=== PATIENT | female | born 1940 | race Caucasian/White ===

== ENCOUNTER 2017-01-01 11:26 | Emergency (ER) | payer MEDICARE, BC ==
[~2017-01-01] VITALS: Ht 170.2 cm; Wt 84.2 kg
[~2017-01-01 11:26] MED LIST: AMLO5TAB PO; ASCO10007 PO; ASPI81TA2 PO; BIOT25008 PO; CALC600T12 PO; CEPH-583 PO; CRAN500C3 PO; CYAN25002 PO; GLUC-136 PO; HYDR12.530 PO; IBUP-14 PO; LECI400C4 PO; LIPOIC ACID PO; LISI40TA4 PO; OMEP20TA2 PO
[2017-01-01 11:30] VITALS: Ht 170.2 cm; Wt 84.2 kg
[2017-01-01] MEDS ORDERED: ASPIRIN 81 MG CHEWABLE TABLET PO ONE (11:30)
--- OUTSIDE RECORDS SUMMARY | 2017-01-01 11:30 | XMS REPORT | Continuity of Care Document ---
Author Author [facility] Organization [facility] Address Unknown Phone Unavailable Allergies Medications Problems Procedures Results Encounters ACCT No. Visit Date/Time Discharge Status Pt. Type Provider Facility Loc./Unit Complaint [id number] 05/31/2016 13:49:00 2015 13:49:00 DIS Outpatient Chuy DUBOSE, [facility] E.OPO [id number] 11/15/2015 13:31:00 2015 13:31:00 DIS Outpatient Chuy DUBOSE, [facility] E.COLLEEN [id number] 11/05/2015 10:12:00 2015 10:12:00 DIS Outpatient Chuy DUBOSE, [facility] E.RAC
--- OUTSIDE RECORDS SUMMARY | 2017-01-01 11:36 | XMS REPORT | Continuity of Care Document ---
Author Author [facility] Organization [facility] Address Unknown Phone Unavailable Allergies Medications Problems Procedures Results Encounters ACCT No. Visit Date/Time Discharge Status Pt. Type Provider Facility Loc./Unit Complaint [id number] 05/31/2016 13:49:00 2015 13:49:00 DIS Outpatient Chuy DUBOSE, [facility] E.OPO [id number] 11/15/2015 13:31:00 2015 13:31:00 DIS Outpatient Chuy DUBOSE, [facility] E.COLLEEN [id number] 11/05/2015 10:12:00 2015 10:12:00 DIS Outpatient Chuy DUBOSE, [facility] E.RAC
[2017-01-01 11:43] LABS: BASOPHILS # (AUTO) 0.1 T/MM3 (0-0.2); BASOPHILS % (AUTO) 1.1 % (0-2); EOSINOPHILS # (AUTO) 0.4 T/MM3 (0-0.5); EOSINOPHILS % (AUTO) 3.7 % (0-4); HCT - HEMATOCRIT 40.5 % (36-46); HGB - HEMOGLOBIN 13.6 GM/DL (12-16); IMMATURE GRANULOCYTE # (AUTO) 0.02 T/MM3 (0.00-0.03); IMMATURE GRANULOCYTE % (AUTO) 0.2 % (0.0-0.5); LYMPHOCYTES # (AUTO) 3.1 T/MM3 (1-4.8); LYMPHOCYTES % (AUTO) 31.1 % (23-45); MEAN CORPUSCULAR HGB 31.1 UUG (26-34); MEAN CORPUSCULAR HGB CONC(MCHC 33.6 GM/DL (31-37); MEAN CORPUSCULAR VOLUME 92.5 UM3 (80-100); MEAN PLATELET VOLUME 9.9 UM3 (9.4-12.4); MONOCYTES # (AUTO) 1.1 T/MM3 (0-0.8); MONOCYTES % (AUTO) 10.9 % (0-9.0); NEUTROPHILS #(AUTO)-ABSOLUTE 5.3 T/MM3 (1.8-7.7); RED BLOOD COUNT 4.38 M/MM3 (4.00-5.20)
[2017-01-01 11:48] LABS: INR 0.98 (0.76-1.04); PROTHROMBIN TIME 10.7 SEC (9.31-12.49)
[2017-01-01 11:52] LABS: ANION GAP 16 MEQ/L (5-15); BUN/CREATININE RATIO 21 RATIO (6-26); CALCIUM 10.1 MG/DL (8.4-10.2); CHLORIDE 98 MEQ/L (98-107); CO2 - CARBON DIOXIDE 25 MEQ/L (22-30); CREATININE 1.1 MG/DL (0.7-1.2); GLOMERULAR FILTRATION RATE 48; GLUCOSE 88 MG/DL (65-110); POTASSIUM 4.1 MEQ/L (3.6-5); SODIUM 139 MEQ/L (134-144)
--- NOTE | 2017-01-01 11:56 | NUR ---
PROVIDER DR. FERRER IN TO SEE PATIENT.
--- NOTE | 2017-01-01 12:03 | ERPDOC ---
Departure Disposition Decision Date: Jan 01, 2017 Disposition Decision Time: 15:21 Disposition: 01 DISCHARGED HOME, SELF-CARE Impression Impression Impression: Primary Impression: Atypical chest pain Severity: Mild Condition: Improved Seen By: Physician only Referrals: MAT REESE MD 1-2 days, call for appointment BART BALL MD 1 Day Patient Instructions: Chest Pain (ED) Problems/Meds/Labs Reviewed?: Yes Medications reviewed and manag: Yes Follow up care ordered?: Yes Mental Status: Alert, Oriented Scripts Tramadol HCl (Ultram) 50 Mg Tablet 50 MG PO Q8H Y for PAIN, #12 TAB 0 Refills Prov: JACLYN FERRER DO 01/01/17 HPI - Chest Pain General Chief Complaint: Chest Pain Stated Complaint: CP Time Seen by Provider: 11:29 Source: patient (Patient presents to the ER with a 5 day complaint of left lateral chest wall pain, along approx rib 8, without apparent trauma. Patient states this pain has been waxing and waining, and she's had some relief with Advil, but her pain has been consctant for approx 12 hours. ), other (Pain is slightly reproducable with palpation) Exam Limitations: no limitations HPI - Chest Pain Occurred At: home Onset/Timing: Changing over time Duration: 1 week Pain/Severity Scale: Now & Worst: 7/10 Activities at Onset/Context: activity, rest, other Location: other (left lateral rib cage) Quality: 'pain' Modifying Factors: WORSE WITH: palpation Associated Symptoms: DENIES: abdominal pain, back pain, diaphoresis, dizziness , edema, fast HR, fatigue, fever/chills, headache, heartburn, irregular HR, nausea/vomiting, rash, shortness of breath, slow HR, swelling/lump in chest, syncope, weakness Chest Pain Radiation: no radiation Nitro Today/Relief: 0.4 mg x 1, provided by ED, complete relief Aspirin Treatment Today: 81 mg x 3, provided by ED Prior Chest Pain/Cardiac Vasyl: stress test (Several years ago, ) Hx of Similar Symptoms: No Allergies: Coded Allergies: Sulfa (Sulfonamide Antibiotics) (Verified Allergy, Unknown, 01/01/17) Past History Patient Surgical History colon resection revision of abdominal surgery--mssa infection appendectomy hysterectomy Past Medical History Metabolic: hypertension ENMT: allergies Psychological: depression Surgical History General: other Family History Family PMH: FOUND: other Vaccines Hx Influenza Vaccination: Yes (FALL 2014) Hx Pneumococcal Vaccination: Yes (2007) Social History Smoking Status: Unknown if ever smoked Does patient use chewing tobac: No Second Hand Exposure: No Substance Use Type: does not use Alcohol Intake: none Service: No Occupational Hazard: No Advance Directives: Yes Full Code Review of Systems Constitutional Constitutional: DENIES: chills, fever Eyes Lids/Accessories: DENIES: erythema, swelling ENMT Ears: DENIES: erythema, pain Balance: DENIES: ataxia, vertigo Sinuses: DENIES: congestion, rhinorrhea Mouth/Throat: DENIES: sore throat Cardiovascular Cardiac: chest pain, DENIES: dyspnea on exertion, orthopnea Rhythm/Rate: DENIES: tachycardia Pulmonary Respiratory: DENIES: cough, dyspnea, sputum GI Upper Abdomen: DENIES: nausea, pain, vomiting Lower Abdomen: DENIES: constipation, diarrhea, pain General: DENIES: dysuria Musculoskeletal General: DENIES: cramps, pain, weakness Integumentary Skin: DENIES: color change, itching, rash Neurological General: DENIES: ataxia, change in strength, headache, numbness, poor coordination, seizures, syncope, vertigo, weakness Psychiatric Psychiatric: DENIES: anxiety, depression, nervousness Hematologic/Lymphatic Hematologic/Lymphatic: DENIES: anemia Allergic/Immunological Allergic/Immunoligical: DENIES: sneezing All other Systems All Other Systems: Reviewed and Negative Physical Exam General General Nourishment: well nourished, well developed, appears stated age, adult General Body Habitus: well groomed Vitals and Pain First Documented Vital Signs Date Time Temp Pulse Resp B/P Pulse Ox O2 Delivery O2 Flow Rate FiO2 01/01/17 11:30 97.9 92 18 192/84 99 Room Air Weight: Kilograms: Height (feet): 5 Height (inches): 7.00 Triage Pain Scale: RN VS reviewed by Provider: Yes Eyes (brief) Eyes Brief: found: EOMI, PERRL ENMT (brief) ENMT Brief: FOUND: TM clear, TM good light reflex, mucosa moist, NOT FOUND: pharnyx erythema Neck (brief) Neck: FOUND: trachea midline, NOT FOUND: adenopathy, tenderness, tracheal deviation Respiratory (brief) Respiratory: FOUND: clear all mendoza, tenderness (left lateral rib cage, along rib 8. no obvious trauma) Cardiovascular (brief) Cardiac: FOUND: regular rate, regular rhythm Capillary Refill: <2 sec Pulses: all distal extremities, equal, strong Abdomen (brief) Abdominal Brief: FOUND: bowel normo active x4, soft, NOT FOUND: distended, tender Lymphatic (brief) Lymphatic Brief: NOT FOUND: adenopathy Musculoskeletal (brief) Musculoskeletal Brief: FOUND: tenderness (refer to HPI), NOT FOUND: spasm Integumentary (brief) Integumentary Brief: FOUND: pink, warm Neurologic (brief) Neurological Brief: FOUND: CN w/o gross def to obs, gait w/o gross def to obs, motor-no gross deficits, sensory-no gross deficits, NOT FOUND: ataxia Psychiatric (brief) Psychiatric Brief: FOUND: alert, attentive, normal affect, oriented Differential Diagnoses Considering: Acute TX, Anxiety/Panic, Angina, Aortic Dissection, Biliary Colic , Bradycardia, CHF, Costochondritis, Esophageal Spasm, GERD, Hypertensive Emergency, Hyperventilation, Pericarditis, Pleurisy, Pneumothorax, Pneumonia, PSVT, Pulmonary Edema, Pulmonary Embolus, Rib Fracture, Muscle Spasm, Other Progress Results/Orders Orders Procedure Category Date Status Time Cbc W/Auto LAB 01/01/17 Complete Diff-Reflex Manual 11:29 Bmp - Basic Metabolic LAB 01/01/17 Complete Panel 11:29 Probnp LAB 01/01/17 Complete 11:29 Troponin I W LAB 01/01/17 Complete Hemolysis Index 11:29 INR LAB 01/01/17 Complete 11:29 EKG EKG 01/01/17 Taken 11:29 Chest 1 View RAD 01/01/17 Resulted 11:29 Iv Lock (Ed Only) EDM 01/01/17 Transmitted 11:29 Aspirin (Asa) PHA 01/01/17 Complete 11:30 Ketorolac (Toradol) PHA 01/01/17 Complete 12:[address] 01/01/17 Resulted 12:25 Nitroglycerin PHA 01/01/17 Complete (Nitrostat) 12:45 Iohexol (Omnipaque) PHA 01/01/17 Complete 12:38 Normal Saline (Ns) PHA 01/01/17 Complete 12:39 Saline Flush (Iv PHA 01/01/17 Complete Flush) 12:39 Troponin I W LAB 01/01/17 Complete Hemolysis Index 14:30 EKG EKG 01/01/17 Taken 14:30 Lab Results Laboratory Tests Test 01/01/17 11:40 01/01/17 14:35 White Blood Count 10.0T/MM3 Red Blood Count 4.38M/MM3 Hemoglobin 13.6GM/DL Hematocrit 40.5% Mean Corpuscular Volume 92.5UM3 Mean Corpuscular Hemoglobin 31.1UUG Mean Corpuscular Hemoglobin Concent 33.6GM/DL RDW Standard Deviation 41.4FL Platelet Count 364T/MM3 Mean Platelet Volume 9.9UM3 Immature Granulocyte % (Auto) 0.2% Neutrophils (%) (Auto) 53.0% Lymphocytes (%) (Auto) 31.1% Monocytes (%) (Auto) 10.9% Eosinophils (%) (Auto) 3.7% Basophils (%) (Auto) 1.1% Absolute Immature Granulocyte (auto 0.02T/MM3 Absolute Neutrophils (auto) 5.3T/MM3 Absolute Lymphocytes (auto) 3.1T/MM3 Absolute Monocytes (auto) 1.1T/MM3 Absolute Eosinophils (auto) 0.4T/MM3 Absolute Basophils (auto) 0.1T/MM3 Prothromb Time International Ratio 0.98 Turbidity < 20 Sodium Level 139MEQ/L Potassium Level 4.1MEQ/L Chloride Level 98MEQ/L Carbon Dioxide Level 25MEQ/L Anion Gap 16MEQ/L Blood Urea Nitrogen 23.0MG/DL Creatinine 1.1MG/DL Glomerular Filtration Rate Calc 48 BUN/Creatinine Ratio 21RATIO Glucose Level 88MG/DL Calculated Osmolality 271MOSM/KG Calcium Level 10.1MG/DL Icterus Index < 2 Troponin I < 0.012ng/ml < 0.012ng/ml GD-Bnf-Y-Type Natriuretic Peptide 42PG/ML Chemistry Specimen Hemolysis < 15 < 15 Medications Current ED Medications Aspirin (ASA) 324 mg O ONCE PO Last administered on 01/01/17 11:40; Start at 11:30; Stop 01/01/17 at 11:31; Status DC Ketorolac Tromethamine (Toradol) 15 mg O ONCE IV Last administered on 12:31; Start 01/01/17 at 12:30; Stop 01/01/17 at 12:31; Status DC Nitroglycerin (Nitrostat) 0.4 mg O ONCE SL Last administered on 01/01/17t 11: 39; Start 01/01/17 at 12:45; Stop 01/01/17 at 12:46; Status DC Iohexol 1 bottle 1 bottle STK-MED ONCE .ROUTE ; Start 01/01/17 at 12:38; Stop at 12:39; Status DC Sodium Chloride (NS) 100 ml @ As Directed STK-MED ONCE .ROUTE ; Start 01/01/17 at 12:39; Stop 01/01/17 at 12:40; Status DC Sodium Chloride (Iv Flush) 10 ml STK-MED ONCE .ROUTE ; Start 01/01/17 at 12:39; Stop 01/01/17 at 12:40; Status DC Progress Progress Patient is feeling better, wanting to go home I recommended admission, but the patient refused. Patient will agree to repeat cardiac enzymes EKG EKG #1: Rate: 60-100 Rhythm: sinus [place]: normal QRS: normal Intervals: normal ST/T: non-specific changes Interpreted by: signing physician EKG #2: Rate: 60-100 Rhythm: sinus [place]: normal QRS: normal Intervals: normal ST/T: non-specific changes Interpreted by: signing physician EKG ScImage/Picomm EKG interpreted in ScImage/Pic: No Xray Xray : Reason for Exam: Chest pain Xray: CXR Portable Interpretation: Normal, Reviewed Written Report CT CT : Reason for Exam: Chest pain CT: Other (CTA for PE) Interpretation: Normal, Reviewed Written Report JACLYN FERRER DO Jan 01, 2017 12:03
[2017-01-01 12:05] LABS: PROBNP 42 PG/ML (0-175)
[2017-01-01] MEDS ORDERED: MULT-94 PO (12:05)
--- NOTE | 2017-01-01 12:05 | DI ---
Indication: ITS.REASON: Chest pain PROCEDURE: CHEST 1 VIEW: Encounter: Initial Comparison: October 19, 2015 FINDINGS: The lungs are clear. There is no abnormal airspace opacity, pleural effusion or pneumothorax identified. The heart size, pulmonary vasculature and mediastinum are within normal limits. No significant skeletal abnormality is seen. IMPRESSION: No acute cardiopulmonary abnormality. .
[2017-01-01] MEDS ORDERED: FISH1CAP59 PO (12:08)
[2017-01-01] MEDS ORDERED: OMEG300C PO (12:08)
[2017-01-01] MEDS ORDERED: TRAZ-170 PO (12:09)
[2017-01-01] MEDS ORDERED: ACET1TAB18 PO (12:14)
--- NOTE | 2017-01-01 12:23 | NUR ---
FAMILY FAMILY FRIEND IN TO SEE PATIENT.
[2017-01-01] MEDS ORDERED: KETOROLAC 30mg/ml INJECTION IV ONE (12:30)
[2017-01-01] MEDS ORDERED: IOHEXOL 350 MG/ML 75ml INJECTION ONE (12:38)
[2017-01-01] MEDS ORDERED: SALINE FLUSH 10ml SYRINGE ONE (12:39)
[2017-01-01] MEDS ORDERED: NORMAL SALINE 100 ML ONE (12:39)
[2017-01-01] MEDS ORDERED: NITROGLYCERIN 0.4 MG SUBLINGUAL TABLET SL ONE (12:45)
--- NOTE | 2017-01-01 13:22 | NUR ---
CT RETURNS FROM CT VIA CART
--- NOTE | 2017-01-01 13:49 | DI ---
Indication: ITS.REASON: Chest pain PROCEDURE: CTA PULMONARY EMBOLI: Encounter: Initial Comparison: Chest x-ray from today Technique: Axial CT pulmonary angiographic phase images were performed through the chest after the administration of intravenous contrast. Coronal and Sagittal MIP reconstructed images were created and reviewed. Automated Exposure Control and Iterative Reconstruction dose reducing techniques were utilized. Contrast: Omnipaque 350 75 mL Findings: Pulmonary arteries: Exam is diagnostic to the subsegmental pulmonary arterial level. No filling defects identified to suggest a pulmonary embolus. Other findings: Bilateral apical pleural thickening or scarring. No focal consolidative pneumonia. Minimal dependent atelectasis. No pleural effusion or pneumothorax. The central airways are patent. No pulmonary masses. No axillary or mediastinal adenopathy. Heart size is normal. No pericardial effusion. The upper abdomen shows no acute findings. Postoperative changes from right hemicolectomy. Impression: No pulmonary embolus or acute intrathoracic disease process seen. .
--- NOTE | 2017-01-01 14:08 | NUR ---
ELIMINATION AMBULATES TO BATHROOM
[2017-01-01] MEDS ORDERED: TRAM50TA53 PO (15:23)
[2017-01-01 15:38] VITALS: BP 156/70; PULSE 82; RESP 17; TEMP 97.9; O2SAT 97
== END 2017-01-01 15:38 | disposition home or self-care (01) ==
LOC: ED 11:26
DX: R07.89 Other chest pain (principal); I10 Essential (primary) hypertension
CPT/HCPCS: 36415; 71010; 71275; 80048; 83880; 84484; 85025; 85610; 93005; 96374; 99284; A9270; J1885; J7050; Q9967